=== PATIENT | male | born 1945 | race Caucasian/White ===

== ENCOUNTER → 2017-08-24 | Outpatient (CLI) | payer OTHER ==
[~2017-08-24] MED LIST: AMLO5TAB2 PO; ASPI-496 PO; CARB1TAB3 PO; CARB1TAB44 PO; CLINDAMYCIN 150 MG/ML, 6ML ONE; DOCU100T3 PO; HYDR25TA6 PO; POTA20TA89 PO; PRAZ1CAP2 PO; PRAZ5CAP2 PO; SIMV20TA3 PO
[2017-08-24 16:49] LABS: MICROSCOPIC NOT IND
[2017-08-24 16:50] LABS: BASOPHILS # (AUTO) 0.05 x10^3/uL (0-0.1); BASOPHILS % (AUTO) 1 % (0-1); EOSINOPHILS # (AUTO) 0.22 x10^3/uL (0-0.4); EOSINOPHILS % (AUTO) 3 % (1-7); LYMPHOCYTES # (AUTO) 1.73 x10^3/uL (1-3.4); LYMPHOCYTES % (AUTO) 25 % (22-44); MD NO; MEAN CORPUSCULAR HEMOGLOBIN 31.7 pg (27.5-34.5); MEAN CORPUSCULAR HGB CONC 34.5 g/dL (33.2-36.2); MEAN CORPUSCULAR VOLUME 91.9 fL (81-97); MEAN PLATELET VOLUME 8.1 fL (7.4-10.4); MONOCYTES # (AUTO) 0.81 x10^3/uL (0.2-0.8); MONOCYTES % (AUTO) 12 % (2-9); NEUTROPHILS # (AUTO) 4.25 x10^3/uL (1.8-6.8); NEUTROPHILS % (AUTO) 60 % (42-75); PLATELET COUNT 187 x10^3/uL (130-400); RED BLOOD COUNT 5.21 x10^6/uL (4.38-5.82)
[2017-08-24 16:51] LABS: HCT (SEDRATE) 48.5 % (39.2-51.8); INTERNATIONAL NORMALIZED RATIO 1.09 (0.93-1.1); PROTHROMBIN TIME 11.3 Seconds (9.6-11.5)
[2017-08-24 16:55] LABS: ALBUMIN 4.2 g/dL (3.4-5.0); ANION GAP 6 mmol/L (5-15); CALCIUM 9.3 mg/dL (8.5-10.1); CHLORIDE 103 mmol/L (98-107)
[2017-08-24 16:59] LABS: ALANINE AMINOTRANSFERASE 25 U/L (12-78); ALKALINE PHOSPHATASE 75 U/L (45-117); BILIRUBIN,TOTAL 1.3 mg/dL (0.2-1.0); C-REACTIVE PROTEIN, QUANT 0.19 mg/dL (0.02-0.49); CREATININE 1.33 mg/dL (0.7-1.3); TOTAL PROTEIN 7.7 g/dL (6.4-8.2)
[2017-08-24 17:06] LABS: CULTURE INDICATED? NO
[2017-08-24 17:33] LABS: HEMOGLOBIN A1C 5.6 % (4.2-6.3)
== END | disposition home or self-care (01) ==
LOC: STAR 14:50
PROVIDERS: ATTEND Orthopaedic Surgery
DX: M25.561 Pain in right knee (principal)
CPT/HCPCS: 36415; 80053; 81003; 83036; 85025; 85610; 85651; 85730; 86140; 87081; 87806; 93005; G0475

== ENCOUNTER 2017-08-28 10:34 | Observation (INO) | payer OTHER ==
[~2017-08-28] VITALS: Ht 177.8 cm; Wt 135.0 kg
[~2017-08-28 10:34] MED LIST changes: -AMLO5TAB2 PO; -CLINDAMYCIN 150 MG/ML, 6ML ONE; +EPINEPHRINE 1 MG/ML, 1ML ONE; +KETOROLAC 60 MG/2 ML ONE; +ROPIvacaine/PF 0.2%, 20 ML ONE; +TRANEXAMIC ACID 100 MG/ML, 10ML ONE
[2017-08-28] MEDS ORDERED: VANCOMYCIN PER PHARMACY MC STA (11:31)
[2017-08-28] MEDS ORDERED: LACTATED RINGERS 1,000 ML IV SCH (11:35)
[2017-08-28] MEDS ORDERED: AMLO5TAB2 PO (11:53)
[2017-08-28 11:54] VITALS: BP 143/74
[2017-08-28] MEDS ORDERED: VANCOMYCIN 1,500 MG in SODIUM CHLORIDE 0.9% 250 ML IV ONE (12:00)
[2017-08-28] MEDS ORDERED: LIDOCAINE-MPF 1%, 2ML INFIL ONE (12:00)
[2017-08-28] MEDS ORDERED: ACETAMINOPHEN 500 MG TABLET PO ONE (12:00)
[2017-08-28] MEDS ORDERED: GABAPENTIN 300 MG CAPSULE PO ONE (12:00)
[2017-08-28] MEDS ORDERED: TAMSULOSIN 0.4 MG CAP.ER.24H PO ONE (12:30)
[2017-08-28] MEDS ORDERED: OxyconTIN ER 10 MG TAB.ER PO ONE (12:30)
[2017-08-28] MEDS ORDERED: ONDANSETRON ODT 8 MG PO ONE (12:30)
[2017-08-28] MEDS ORDERED: DIAZEPAM 5 MG TABLET PO ONE (12:30)
[2017-08-28] MEDS ORDERED: FENTANYL PF 250 MCG/5ML ONE (12:43)
[2017-08-28] MEDS ORDERED: ONDANSETRON 2MG/ML, 2ML ONE (12:43)
[2017-08-28] MEDS ORDERED: DEXAMETHASONE 4 MG/ML, 1ML ONE (12:43)
[2017-08-28] MEDS ORDERED: MIDAZOLAM 1 MG/ML, 2ML ONE (12:43)
[2017-08-28] MEDS ORDERED: LIDOCAINE-MPF 2% ,5ML ONE (12:43)
[2017-08-28] MEDS ORDERED: CEFAZOLIN 1,000 MG ONE (12:43)
[2017-08-28] MEDS ORDERED: BUPIVACAINE/PF 0.25% ONE (12:43)
[2017-08-28] MEDS ORDERED: PROPOFOL 10 MG/ML, 20ML ONE (12:43)
[2017-08-28] MEDS ORDERED: KETAMINE 10 MG/ML, 20ML ONE (12:44)
[2017-08-28] MEDS ORDERED: CLINDAMYCIN PMX 900MG/50ML ONE (13:40)
[2017-08-28] MEDS ORDERED: SUCCINYLCHOLINE 20 MG/ML, 10ML ONE (13:40)
[2017-08-28] MEDS ORDERED: PROMETHAZINE 25 MG/ML, 1ML IM PRN (14:30)
[2017-08-28] MEDS ORDERED: EPHEDRINE 50 MG/ML, 1ML IM PRN (14:30)
[2017-08-28] MEDS ORDERED: MORPHINE SULFATE 4 MG/ML, 1ML IVPush PRN (14:30)
[2017-08-28] MEDS ORDERED: MIDAZOLAM 1 MG/ML, 2ML IV PRN (14:30)
[2017-08-28] MEDS ORDERED: PROMETHAZINE 25 MG/ML, 1ML IV PRN (14:30)
[2017-08-28] MEDS ORDERED: hydrALAzine 20 MG/ML, 1ML IV PRN (14:30)
[2017-08-28] MEDS ORDERED: SCOPOLAMINE PATCH, 1.5MG PATCH.TD72 TD PRN ×2 (14:30→16:30)
[2017-08-28] MEDS ORDERED: HYDROmorphone 1 MG/ML, 1ML IV PRN ×2 (14:30→16:30)
[2017-08-28] MEDS ORDERED: OXYcodone 5 MG/5 ML ORAL.SOL UDC PO PRN (14:30)
[2017-08-28] MEDS ORDERED: FENTANYL PF 100 MCG/2ML IV PRN (14:30)
[2017-08-28] MEDS ORDERED: MEPERIDINE/PF 25MG/0.5ML IVPush PRN (14:30)
[2017-08-28] MEDS ORDERED: DIAZEPAM 5 MG/ML, 2ML IVPush PRN (14:30)
[2017-08-28] MEDS ORDERED: LABETALOL 5MG/ML, 20ML IV PRN (14:30)
[2017-08-28] MEDS ORDERED: ALBUTEROL/IPRATROPIUM 2.5MG/0.5MG, 3 ML NPPB PRN (14:30)
[2017-08-28] MEDS ORDERED: LIDOCAINE GEL 2%, 5ML ONE (14:31)
[2017-08-28] MEDS ORDERED: MEPERIDINE/PF 50 MG/ML ONE (15:40)
[2017-08-28] MEDS ORDERED: TRANEXAMIC ACID 1,000 MG in SODIUM CHLORIDE 0.9% 100 ML IVPB ONE (16:30)
[2017-08-28] MEDS ORDERED: ONDANSETRON 2MG/ML, 2ML IV PRN (16:30)
[2017-08-28] MEDS ORDERED: DIAZEPAM 5 MG TABLET PO PRN (16:30)
[2017-08-28] MEDS ORDERED: PROMETHAZINE 12.5 MG SUPP PR PRN (16:30)
[2017-08-28] MEDS ORDERED: ONDANSETRON 4 MG TABLET PO PRN (16:30)
[2017-08-28] MEDS ORDERED: ZOLPIDEM 5MG TABLET PO PRN (16:30)
[2017-08-28] MEDS ORDERED: MAGNESIUM HYDROXIDE 8%, 30ML UDC PO PRN (16:30)
[2017-08-28] MEDS ORDERED: DIPHENHYDRAMINE 50 MG CAPSULE PO PRN (16:30)
[2017-08-28] MEDS ORDERED: ACETAMINOPHEN 650 MG/20.3 ML UDC PO PRN (16:30)
[2017-08-28] MEDS ORDERED: OXYcodone IR 5MG TABLET PO PRN (16:30)
[2017-08-28] MEDS ORDERED: HYDROcodone/APAP 10/325 MG TABLET PO PRN (16:30)
[2017-08-28 17:41] VITALS: BP 122/67
[2017-08-28] MEDS: CEFAZOLIN PMX 1GM/50ML 50 ML IVPB SCH (19:46)
[2017-08-28 20:13] VITALS: BP 126/71
[2017-08-28] MEDS ORDERED: PRAZOSIN 1 MG CAPSULE PO SCH (21:00)
[2017-08-28] MEDS ORDERED: CARBIDOPA/LEVODOPA CR 50 MG/200 MG TABLET PO SCH (21:00)
[2017-08-28] MEDS ORDERED: PRAZOSIN 5 MG CAPSULE PO SCH (21:00)
[2017-08-28] MEDS ORDERED: SIMVASTATIN 20 MG TABLET PO SCH (21:00)
[2017-08-28] MEDS ORDERED: DOCUSATE 100 MG CAPSULE PO SCH (21:00)
[2017-08-28] MEDS: DOCUSATE 100 MG CAPSULE PO SCH (21:42)
[2017-08-28] MEDS: POTASSIUM CHLORIDE 20 MEQ TAB.ER.PRT PO SCH (21:43)
[2017-08-28] MEDS: CARBIDOPA/LEVODOPA 25 MG/250 MG TABLET PO SCH (22:37)
[2017-08-29 00:18] VITALS: BP 119/60
[2017-08-29 04:13] VITALS: BP 107/62
[2017-08-29] MEDS: CEFAZOLIN PMX 1GM/50ML 50 ML IVPB SCH (04:45)
[2017-08-29] MEDS: CARBIDOPA/LEVODOPA 25 MG/250 MG TABLET PO SCH ×2 (07:16→10:53)
[2017-08-29 08:20] VITALS: BP 124/61
[2017-08-29] MEDS ORDERED: HYDROCHLOROTHIAZIDE 25 MG TABLET PO SCH (09:00)
[2017-08-29] MEDS ORDERED: AMLODIPINE 5 MG TABLET PO SCH (09:00)
[2017-08-29] MEDS: POTASSIUM CHLORIDE 20 MEQ TAB.ER.PRT PO SCH (09:41)
[2017-08-29] MEDS: DOCUSATE 100 MG CAPSULE PO SCH (09:42)
[2017-08-29] MEDS ORDERED: ASPI-650 PO (11:12)
[2017-08-29] MEDS ORDERED: KETOROLAC 30 MG/1 ML IV SCH (16:30)
[2017-08-29] MEDS ORDERED: ASPIRIN 325 MG TABLET EC PO SCH (18:00)
== END 2017-08-29 11:25 | disposition home or self-care (01) ==
LOC: INTOOBSV 10:48 → ORIP 10:48 → EDSTATUS 13:30 → 4NOR 17:32 → DCLOUNGE 08-29 11:07
PROVIDERS: ADMIT Orthopaedic Surgery; ATTEND Orthopaedic Surgery
DX: T84.092A Other mechanical complication of internal right knee prosthesis, initial encounter (principal); Y79.2 Prosthetic and other implants, materials and accessory orthopedic devices associated with adverse incidents; G20 Parkinson's disease
CPT/HCPCS: 27487; 73560; 87015; 87070; 87075; 87102; 87116; 87205; 87206; 89051; 96365; 96375; 97116; 97150; 97161; C1713; C1776; G0378; G8978; G8979; G8980; J0171; J0330; J0690; J1100; J1885; J2175; J2250; J2405; J2704; J2795; J3010; J3370; J3490; J7050; J7120; Q0162